=== PATIENT | female | born 1970 | race Two or more races ===

== ENCOUNTER 2017-01-30 19:14 | Inpatient (IN) | payer SELFPAY ==
[~2017-01-30] VITALS: Ht 134.6 cm; Wt 64.4 kg
[2017-01-30 19:45] LABS: BASO % 1 % (0-3); EOS % 5 % (0-3); HEMATOCRIT 32.3 % (36.0-47.0); LYMPH # 1.6 x10^3/uL (1.0-4.8); LYMPH % 17 % (24-48); MEAN CORPUSCULAR HEMOGLOBIN 22 pg (25-35); MEAN CORPUSCULAR HGB CONC 31 g/dL (31-37); MEAN CORPUSCULAR VOLUME 71 fL (79-100); MONO % 9 % (0-9); NEUT % 68 % (31-73); PLATELET COUNT 360 x10^3/uL (140-400); RED BLOOD COUNT 4.57 x10^6/uL (3.50-5.40); RED CELL DISTRIBUTION WIDTH 18.7 % (11.5-14.5)
[2017-01-30 19:54] LABS: CREATININE 0.7 mg/dL (0.6-1.0); GFR 90.5; POTASSIUM 3.6 mmol/L (3.5-5.1)
[2017-01-30 20:00] LABS: ALBUMIN 2.7 g/dL (3.4-5.0); ALBUMIN/GLOBULIN RATIO 0.6 (1.0-1.7); TOTAL BILIRUBIN 0.2 mg/dL (0.2-1.0); TOTAL PROTEIN 7.4 g/dL (6.4-8.2)
[2017-01-30] MEDS ORDERED: IPRATRPIUM/ALBUTEROL 0.5/2.5MG 3 ML NEBU. NEB ONE (20:00)
[2017-01-30] MEDS ORDERED: IV NORMAL SALINE 1000ML BAG 1,000 ML IV ONE (20:00)
[2017-01-30] MEDS ORDERED: AZITHRMYCN 500MG IVPB FOR OMNI 250 ML IV ONE (20:00)
[2017-01-30 20:04] LABS: BILIRUBIN,URINE NEGATIVE (NEG); GLUCOSE,URINE NEGATIVE (NEG); NITRITE,URINE NEGATIVE (NEG); PH,URINE 6.5; PROTEIN,URINE NEGATIVE (NEG-TRACE); UROBILINOGEN,URINE 0.2 mg/dL (0.2 mg/dL)
[2017-01-30 20:16] LABS: HYPOCHROMIA SLIGHT; OVALOCYTES OCC; PLT ESTIMATE INCREASED (ADEQUATE); POLYCHROMASIA SLIGHT; SCHISTOCYTES OCC
[2017-01-30 20:28] LABS: BACTERIA,URINE FEW /HPF (0-FEW); RBC,URINE 0 /HPF (0-2)
[2017-01-30 20:29] LABS: SQUAMOUS EPITHELIAL CELL,UR OCC /LPF
[2017-01-30 21:19] LABS: OBC FLU VALID
[2017-01-30 21:50] VITALS: BP 104/66
[2017-01-30] MEDS ORDERED: ONDANSETRON PF 4 MG/2 ML VIAL. IV PRN (22:15)
[2017-01-30] MEDS ORDERED: IV NORMAL SALINE 1000ML BAG 1,000 ML IV SCH (22:15)
[2017-01-30] MEDS ORDERED: MORPHINE SULFATE 4 MG/ML DISP.SYRIN. IV PRN (22:30)
[2017-01-30] MEDS: ONDANSETRON PF 4 MG/2 ML VIAL. IV PRN (22:47)
[2017-01-30] MEDS: ACETAMINOPHEN 325 MG TABLET. PO PRN (22:47)
[2017-01-30] MEDS: IV NORMAL SALINE 1000ML BAG 1,000 ML IV SCH (22:47)
[2017-01-30 23:00] VITALS: BP 104/66
--- NOTE | 2017-01-31 01:15 | ED.ADGEN ---
Past Medical History Past Medical History: Bronchitis, Kidney Stone, Migraines, Pneumonia Past Surgical History: Cholecystectomy, Tubal ligation, Other Additional Past Surgical Histo: kidney stone removal 2016; L hand Alcohol Use: None Drug Use: None Adult General Chief Complaint Chief Complaint: SHORTNESS OF BREATH HPI HPI Patient is a 46 year old woman, history of bronchitis, pneumonia, who was hospitalized for 8 days for months ago for episode of pneumonia, who presents the emergency department with a complaint of cough, fever, and shortness of breath with body aches. Patient states that his began yesterday. She states cough is primarily nonproductive, denies any sick contacts or exposures, did recently travel from [place] to visit her sister in [place]. Patient last used ibuprofen this morning. Patient noted to be hypoxic with oxygen saturation 85% room air upon arrival to the emergency department, is also. Afebrile in the emergency department, complains of subjective fevers and chills over the past 2 days. Denies any nausea or vomiting, any weakness, numbness, tingling. Has not received her flu vaccination this year. Patient states that she quit smoking 4 months ago, denies any other medical problems or medications regular basis. Patient placed on 2 L nasal cannula, oxygen saturation improved to 97%, respiratory rate to 20 from mid 30s, states she is feeling much better. Blood pressures are 100s over 70s. Review of Systems Review of Systems Constitutional: Subjective fevers and chills. Eyes: Denies change in visual acuity. [] HENT: Denies nasal congestion or sore throat. [] Respiratory: Cough is nonproductive, with shortness of breath. Cardiovascular: Chest pain with cough. No edema. GI: Denies abdominal pain, nausea, vomiting, bloody stools or diarrhea. [] : Denies dysuria. [] Musculoskeletal: Denies back pain or joint pain. [] Integument: Denies rash. [] Neurologic: Denies headache, focal weakness or sensory changes. [] Endocrine: Denies polyuria or polydipsia. [] Lymphatic: Denies swollen glands. [] Psychiatric: Denies depression or anxiety. [] Allergies Allergies Allergies Coded Allergies Type Severity Reaction Last Updated Verified No Known Drug Allergies 01/30/17 No Physical Exam Physical Exam Constitutional: Well developed, well nourished, no acute distress, non-toxic appearance. [] HENT: Normocephalic, atraumatic, bilateral external ears normal, oropharynx moist, no oral exudates, nose normal. [] Eyes: PERRLA, EOMI, conjunctiva normal, no discharge. [] Neck: Normal range of motion, no tenderness, supple, no stridor. [] Cardiovascular:Heart rate regular rhythm, no murmur, S1, S2, rubs or gallops. [] Lungs & Thorax: Patient coughs with deep inspiration, limiting examination, no discrete rhonchi or rales identified, no chest wall crepitus. Patient with tenderness throughout the back in the paraspinal muscles.[] Abdomen: Bowel sounds normal, soft, no tenderness, no masses, no pulsatile masses. [] Skin: Warm, dry, no erythema, no rash. [] Back: No midline tenderness, no cyanosis or deformities, patient with tenderness to palpation of the trapezius density paraspinal muscles of the back , no CVA tenderness. [] Extremities: No tenderness, no cyanosis, no clubbing, ROM intact, no edema. [] Neurologic: Alert and oriented X 3, normal motor function, normal sensory function, no focal deficits noted. [] Psychologic: Affect normal, judgement normal, mood normal. []No tenderness Current Patient Data Vital Signs Vital Signs Date Time Temp Pulse Resp B/P (MAP) Pulse Ox O2 Delivery O2 Flow Rate FiO2 01/30/17 19:49 96 37 109/80 (90) 98 Nasal Cannula 3.0 01/30/17 19:24 98.3 98.3 Lab Values Laboratory Tests Test 01/30/17 19:30 White Blood Count 9.0 x10^3/uL (4.0-11.0) Red Blood Count 4.57 x10^6/uL (3.50-5.40) Hemoglobin 10.0 g/dL (12.0-15.5) L Hematocrit 32.3 % (36.0-47.0) L Mean Corpuscular Volume 71 fL (79-100) L Mean Corpuscular Hemoglobin 22 pg (25-35) L Mean Corpuscular Hemoglobin Concent 31 g/dL (31-37) Red Cell Distribution Width 18.7 % (11.5-14.5) H Platelet Count 360 x10^3/uL (140-400) Neutrophils (%) (Auto) 68 % (31-73) Lymphocytes (%) (Auto) 17 % (24-48) L Monocytes (%) (Auto) 9 % (0-9) Eosinophils (%) (Auto) 5 % (0-3) H Basophils (%) (Auto) 1 % (0-3) Neutrophils # (Auto) 6.1 x10^3uL (1.8-7.7) Lymphocytes # (Auto) 1.6 x10^3/uL (1.0-4.8) Monocytes # (Auto) 0.8 x10^3/uL (0.0-1.1) Eosinophils # (Auto) 0.5 x10^3/uL (0.0-0.7) Basophils # (Auto) 0.0 x10^3/uL (0.0-0.2) Platelet Estimate Increased (ADEQUATE) Large Platelets Occ Polychromasia Slight Hypochromasia Slight Ovalocytes Occ Schistocytes Occ Sodium Level 139 mmol/L (136-145) Potassium Level 3.6 mmol/L (3.5-5.1) Chloride Level 107 mmol/L (98-107) Carbon Dioxide Level 25 mmol/L (21-32) Anion Gap 7 (6-14) Blood Urea Nitrogen 9 mg/dL (7-20) Creatinine 0.7 mg/dL (0.6-1.0) Estimated GFR (Cockcroft-Gault) 90.5 BUN/Creatinine Ratio 13 (6-20) Glucose Level 107 mg/dL (70-99) H Lactic Acid Level 1.8 mmol/L (0.4-2.0) Calcium Level 8.0 mg/dL (8.5-10.1) L Total Bilirubin 0.2 mg/dL (0.2-1.0) Aspartate Amino Transferase (AST) 27 U/L (15-37) Alanine Aminotransferase (ALT) 24 U/L (14-59) Alkaline Phosphatase 69 U/L (46-116) Troponin I Quantitative < 0.017 ng/mL (0.000-0.055) JL-Wpp-V-Type Natriuretic Peptide 21 pg/mL (0-124) Total Protein 7.4 g/dL (6.4-8.2) Albumin 2.7 g/dL (3.4-5.0) L Albumin/Globulin Ratio 0.6 (1.0-1.7) L Laboratory Tests 01/30/17 19:30 Laboratory Tests 01/30/17 19:30 EKG EKG ECG: Rhythm strip: Heart rate 105 bpm, sinus tachycardia, no ectopy.[] Radiology/Procedures Radiology/Procedures Chest x-ray: One view: Patient with bilateral infiltrates, concerning for pneumonia, no obvious effusions, no pneumothorax, no bony or soft tissue abnormalities, patient with normal cardiopulmonary silhouette. As interpreted by me.[] Course & Med Decision Making Course & Med Decision Making Pertinent Labs and Imaging studies reviewed. (See chart for details) Patient's history, examination, and imaging is consistent with pneumonia. Oxygen saturation stable on 2 L nasal cannula, patient resting comfortably, with resolution of her tachypnea. I did discuss signs of bedside patient she is agreeable for admission to the hospital for continued supportive care and initiation of antibiotics. Patient is criteria for community-acquired antibiotics coverage, which was initiated in the ED without issue. Influenza swab was negative. Patient also received a DuoNeb treatment. Findings as above discussed with Dr. Fuentes internal medicine, patient accepted to her service as a full admission to the medical telemetry floor, with consultation placed for pulmonary critical care, with supportive measures and bridge orders entered per discussion. Dragon Disclaimer Dragon Disclaimer This electronic medical record was generated, in whole or in part, using a voice recognition dictation system. Departure Impression: Primary Impression: CAP (community acquired pneumonia) Additional Impression: Respiratory failure with hypoxia Disposition: ADMITTED INPATIENT Admitting Physician: Cedrick Fuentes Condition: IMPROVED Problem Qualifiers BILLY DALTON DO Jan 31, 2017 01:15
[2017-01-31 03:00] VITALS: BP 106/51
[2017-01-31] MEDS: ACETAMINOPHEN 325 MG TABLET. PO PRN ×3 (05:11→19:28)
[2017-01-31 05:41] LABS: BASO % 0 % (0-3); EOS % 6 % (0-3); HEMATOCRIT 28.2 % (36.0-47.0); HEMOGLOBIN 8.8 g/dL (12.0-15.5); LYMPH # 1.6 x10^3/uL (1.0-4.8); LYMPH % 25 % (24-48); MEAN CORPUSCULAR HEMOGLOBIN 22 pg (25-35); MEAN CORPUSCULAR HGB CONC 31 g/dL (31-37); MEAN CORPUSCULAR VOLUME 71 fL (79-100); MONO % 12 % (0-9); NEUT % 57 % (31-73); PLATELET COUNT 303 x10^3/uL (140-400); RED BLOOD COUNT 3.99 x10^6/uL (3.50-5.40); RED CELL DISTRIBUTION WIDTH 18.8 % (11.5-14.5); WHITE BLOOD COUNT 6.3 x10^3/uL (4.0-11.0)
[2017-01-31 06:15] LABS: CALCIUM 7.5 mg/dL (8.5-10.1); CREATININE 0.5 mg/dL (0.6-1.0); GFR 133.4; POTASSIUM 3.7 mmol/L (3.5-5.1)
--- NOTE | 2017-01-31 06:17 | EKG ---
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
[2017-01-31 07:00] VITALS: BP 98/63
[2017-01-31] MEDS: IPRATRPIUM/ALBUTEROL 0.5/2.5MG 3 ML NEBU. NEB SCH ×4 (08:26→20:43)
--- NOTE | 2017-01-31 08:26 | RAD ---
PORTABLE CHEST 1V Clinical Indication: SOB/hypoxia Comparison: None. Findings: Low lung volume. Bibasilar heterogenous air space opacities. Pulmonary vascular indistinctness. Possible small left pleural effusion. No pneumothorax. The cardiomediastinal silhouette and great vessels are normal. No acute osseous abnormality. IMPRESSION: 1. Bibasilar heterogenous air space opacities. Findings could relate to atelectasis, although pulmonary edema or an infectious process cannot be excluded. Recommend continued radiographic follow-up to resolution. 2. Possible small left pleural effusion.
[2017-01-31] MEDS ORDERED: MORPHINE SULFATE 2 MG/ML DISP.SYRIN. IV PRN (10:45)
[2017-01-31] MEDS ORDERED: ONDANSETRON PF 4 MG/2 ML VIAL. IV PRN (10:45)
[2017-01-31] MEDS ORDERED: hydrALAZINE 20 MG/ML VIAL. IVP PRN (10:45)
[2017-01-31] MEDS ORDERED: ALBUTEROL SULFATE 2.5 MG/3 ML NEBU. NEB PRN (10:45)
[2017-01-31 11:00] VITALS: BP 101/60
[2017-01-31] MEDS: traMADol 50 MG TABLET PO PRN ×2 (11:44→17:44)
[2017-01-31] MEDS: guaiFENesin/CODEINE 100mg/10mg 5 ML LIQUID PO PRN ×2 (11:44→21:53)
[2017-01-31] MEDS: IV NORMAL SALINE 1000ML BAG 1,000 ML IV SCH (11:45)
--- NOTE | 2017-01-31 12:16 | CONS ---
DATE OF CONSULTATION: 01/31/2017 PULMONARY CONSULTATION DATE OF SERVICE: 01/31/2017 ATTENDING PHYSICIAN: Dr. Fuentes. REASON FOR CONSULTATION: Pneumonia. HISTORY OF PRESENT ILLNESS: The patient is a 46-year-old who used to smoke for 20 years, quit 4 months ago. She has a history of prior pneumonia. She was brought into the hospital with complaint of shortness of breath and a cough which has been dry. She had some subjective fever at home. The patient was also wheezing as well. The patient had recent travel from [place] to visit her sister in [place]. The patient was also hypoxic with saturation of 85% on room air. Her chest x-ray was reviewed and it shows bibasilar infiltrates consistent with pneumonia. She was started on antibiotic azithromycin and Rocephin, and I have been asked to see her for further evaluation. PAST MEDICAL HISTORY: Possible chronic obstructive pulmonary disease, history of bronchitis, history of kidney stones, migraines, and history of pneumonia. PAST SURGICAL HISTORY: Cholecystectomy, tubal ligation, kidney stone removal. ALLERGIES: None. CURRENT MEDICATIONS: Reviewed as listed in the MRAD. REVIEW OF SYSTEMS: As discussed in my history of present illness. SOCIAL HISTORY: Smoked for 20 years before quitting 4 months ago. PHYSICAL EXAMINATION: GENERAL: She is awake, following commands. VITAL SIGNS: Afebrile, blood pressure is stable, pulse oximetry 99% on 2 liters. NECK: Supple. LUNGS: With bilateral expiratory wheezes, faint. CARDIOVASCULAR: Regular rate and rhythm. ABDOMEN: Soft, obese. EXTREMITIES: With no pitting edema. LABORATORY DATA: Reviewed. White cell count 9.0, platelets 360. IMPRESSION: 1. Acute hypoxic respiratory failure secondary to community-acquired basal pneumonia. 2. Suspected underlying chronic obstructive pulmonary disease. RECOMMENDATIONS: 1. Continue with present antibiotics. 2. Continue oxygen. 3. Bronchodilators. 4. Add Pulmicort. 5. We will follow along with you. Discussed with RN. SAMMY LOWERY MD DR: ZAC/kris JOB#: [id number] / [id number]
[2017-01-31] MEDS: ONDANSETRON PF 4 MG/2 ML VIAL. IV PRN ×2 (13:26→21:53)
[2017-01-31] MEDS ORDERED: FLU VACC QS2017-18 (36MOS+)/PF 0.5 ML SYRINGE. VAX IM ONE (13:30)
--- NOTE | 2017-01-31 13:48 | PDOC1 ---
History and Physical Date of Admission Date of Admission 01/30/17 Identification/Chief Complaint Chief Complaint cough, sob Problems: Source Source: Chart review, Patient History of Present Illness History of Present Illness HPI Patient is a 46 year old woman, history of bronchitis, pneumonia 4 months ago, previous smoking quit 4months ago, came to ER for cough and sob x1week. Pt denies runny nose, sore throat, + subjective fever, sick contract or recent travel, altho as per ERP, pt did recently travel from [place] to visit her sister in [place]. pt has nonproductive cough, with pleuritic chest pain and back pain, sob, as per ERP, Patient noted to be hypoxic with oxygen saturation 85% room air upon arrival to the emergency department, is also. + nausea, bl leg ache Denies vomiting, any weakness, numbness, tingling. Has not received her flu vaccination this year. Patient placed on 2 L nasal cannula, oxygen saturation improved to 97%, respiratory rate to 20 from mid 30s , states she is feeling much better. Blood pressures are 100s over 70s. flu neg. Past Medical History Past Medical History bronchitis Past Surgical History Past Surgical History: Cholecystectomy, Tubal Ligation Family History Family History: Hypertension Social History Smoke: Quit ALCOHOL: social Drugs: None Current Problem List Problem List Problems Medical Problems: (1) Respiratory failure with hypoxia Status: Acute Current Medications Current Medications Current Medications Medications (Trade) Dose Ordered Sig/Delmy Start Time Stop Time Status Last Admin Dose Admin Acetaminophen (Tylenol) 650 mg PRN Q6HRS PRN 01/31/17 10:45 01/31/17 13:23 650 MG Albuterol Sulfate (Ventolin Neb Soln) 2.5 mg PRN Q4HRS PRN 01/31/17 10:45 Albuterol/ Ipratropium (Duoneb) 3 ml RTQID 01/31/17 08:00 02/01/17 07:59 01/31/17 11:43 3 ML Azithromycin 250 ml @ 250 mls/hr 1X ONCE 01/30/17 20:00 01/30/17 20:59 DC 01/30/17 20:00 250 MLS/HR Azithromycin 500 mg/Sodium Chloride 250 ml @ 250 mls/hr Q24H 01/31/17 21:00 02/02/17 20:59 Ceftriaxone Sodium 1 gm/ Sodium Chloride 100 ml @ 200 mls/hr Q24H 01/31/17 21:00 Ceftriaxone Sodium 50 ml @ 100 mls/hr 1X ONCE 01/30/17 20:00 01/30/17 20:29 DC 01/30/17 20:00 100 MLS/HR Docusate Sodium (Colace) 100 mg PRN DAILY PRN 01/31/17 10:45 Guaifenesin/ Codeine Phosphate (Robitussin Ac) 5 ml PRN Q6HRS PRN 01/31/17 10:45 01/31/17 11:44 5 ML Hydralazine HCl (Apresoline) 10 mg PRN Q4HRS PRN 01/31/17 10:45 Influenza Virus Vaccine Quadrival (Fluarix Quad [id number] Syringe) 0.5 ml ONCE ONCE 01/31/17 13:30 01/31/17 13:31 DC Morphine Sulfate 2 mg PRN Q2HR PRN 01/31/17 10:45 Ondansetron HCl (Zofran) 4 mg PRN Q6HRS PRN 01/31/17 10:45 UNV Sodium Chloride 1,000 ml @ 125 mls/hr Q8H 01/30/17 22:15 01/30/17 23:18 DC Tramadol HCl (Ultram) 50 mg PRN Q6HRS PRN 01/31/17 10:45 01/31/17 11:44 50 MG Allergies Allergies Allergies Coded Allergies Type Severity Reaction Last Updated Verified No Known Drug Allergies 01/30/17 No ROS Review of System CONSTITUTIONAL: No fever or chills EYES: No recent changes SKIN: No rash or itching CARDIOVASCULAR: No chest pain, syncope, palpitations, or edema RESPIRATORY: No SOB or cough GASTROINTESTINAL: No nausea, vomiting or abdominal pain NEUROLOGICAL: No headaches or weakness ENDOCRINE: No cold or heat intolerance GENITOURINARY: No urgency or frequency of urination MUSCULOSKELETAL: No back pain or joint pain LYMPHATICS: No enlarged lymph nodes PSYCHIATRIC: No anxiety or depression Physical Exam Physical Exam GEN.: No apparent distress. Alert and oriented. HEENT: Head is normocephalic, atraumatic NECK: Supple. LUNGS: bl basilar mild crackles HEART: RRR, S1, S2 present. Peripheral pulses intact ABDOMEN: Soft, nontender. Positive bowel sounds. EXTREMITIES: Without any cyanosis. NEUROLOGIC: Normal speech, normal tone PSYCHIATRIC: Normal affect, normal mood. SKIN: No ulcerations Vitals Vitals Vital Signs Date Time Temp Pulse Resp B/P (MAP) Pulse Ox O2 Delivery O2 Flow Rate FiO2 01/31/17 11:44 97 Room Air 01/31/17 11:44 28 01/31/17 11:00 97.5 83 101/60 (74) 2.0 97.5 Labs Labs Laboratory Tests Test 01/30/17 19:30 01/30/17 19:55 01/30/17 20:48 01/31/17 04:45 White Blood Count 9.0 x10^3/uL (4.0-11.0) 6.3 x10^3/uL (4.0-11.0) Red Blood Count 4.57 x10^6/uL (3.50-5.40) 3.99 x10^6/uL (3.50-5.40) Hemoglobin 10.0 g/dL (12.0-15.5) 8.8 g/dL (12.0-15.5) Hematocrit 32.3 % (36.0-47.0) 28.2 % (36.0-47.0) Mean Corpuscular Volume 71 fL (79-100) 71 fL (79-100) Mean Corpuscular Hemoglobin 22 pg (25-35) 22 pg (25-35) Mean Corpuscular Hemoglobin Concent 31 g/dL (31-37) 31 g/dL (31-37) Red Cell Distribution Width 18.7 % (11.5-14.5) 18.8 % (11.5-14.5) Platelet Count 360 x10^3/uL (140-400) 303 x10^3/uL (140-400) Neutrophils (%) (Auto) 68 % (31-73) 57 % (31-73) Lymphocytes (%) (Auto) 17 % (24-48) 25 % (24-48) Monocytes (%) (Auto) 9 % (0-9) 12 % (0-9) Eosinophils (%) (Auto) 5 % (0-3) 6 % (0-3) Basophils (%) (Auto) 1 % (0-3) 0 % (0-3) Neutrophils # (Auto) 6.1 x10^3uL (1.8-7.7) 3.6 x10^3uL (1.8-7.7) Lymphocytes # (Auto) 1.6 x10^3/uL (1.0-4.8) 1.6 x10^3/uL (1.0-4.8) Monocytes # (Auto) 0.8 x10^3/uL (0.0-1.1) 0.7 x10^3/uL (0.0-1.1) Eosinophils # (Auto) 0.5 x10^3/uL (0.0-0.7) 0.4 x10^3/uL (0.0-0.7) Basophils # (Auto) 0.0 x10^3/uL (0.0-0.2) 0.0 x10^3/uL (0.0-0.2) Platelet Estimate Increased (ADEQUATE) Large Platelets Occ Polychromasia Slight Hypochromasia Slight Ovalocytes Occ Schistocytes Occ Sodium Level 139 mmol/L (136-145) 143 mmol/L (136-145) Potassium Level 3.6 mmol/L (3.5-5.1) 3.7 mmol/L (3.5-5.1) Chloride Level 107 mmol/L (98-107) 112 mmol/L (98-107) Carbon Dioxide Level 25 mmol/L (21-32) 24 mmol/L (21-32) Anion Gap 7 (6-14) 7 (6-14) Blood Urea Nitrogen 9 mg/dL (7-20) 8 mg/dL (7-20) Creatinine 0.7 mg/dL (0.6-1.0) 0.5 mg/dL (0.6-1.0) Estimated GFR (Cockcroft-Gault) 90.5 133.4 BUN/Creatinine Ratio 13 (6-20) Glucose Level 107 mg/dL (70-99) 93 mg/dL (70-99) Lactic Acid Level 1.8 mmol/L (0.4-2.0) Calcium Level 8.0 mg/dL (8.5-10.1) 7.5 mg/dL (8.5-10.1) Total Bilirubin 0.2 mg/dL (0.2-1.0) Aspartate Amino Transf (AST/SGOT) 27 U/L (15-37) Alanine Aminotransferase (ALT/SGPT) 24 U/L (14-59) Alkaline Phosphatase 69 U/L (46-116) Troponin I Quantitative < 0.017 ng/mL (0.000-0.055) KO-Rsl-I-Type Natriuretic Peptide 21 pg/mL (0-124) Total Protein 7.4 g/dL (6.4-8.2) Albumin 2.7 g/dL (3.4-5.0) Albumin/Globulin Ratio 0.6 (1.0-1.7) Urine Color Yellow Urine Clarity Clear Urine pH 6.5 Urine Specific [place] >=1.030 Urine Protein Negative mg/dL (NEG-TRACE) Urine Glucose (UA) Negative mg/dL (NEG) Urine Ketones (Stick) Negative mg/dL (NEG) Urine Blood Negative (NEG) Urine Nitrite Negative (NEG) Urine Bilirubin Negative (NEG) Urine Urobilinogen Dipstick 0.2 mg/dL (0.2 mg/dL) Urine Leukocyte Esterase Negative (NEG) Urine RBC 0 /HPF (0-2) Urine WBC 1-4 /HPF (0-4) Urine Squamous Epithelial Cells Occ /LPF Urine Amorphous Sediment Present /HPF Urine Bacteria Few /HPF (0-FEW) Urine Hyaline Casts Few /HPF Urine Mucus Mod /LPF Influenza Type A Antigen Negative (NEGATIVE) Influenza Type B Antigen Negative (NEGATIVE) Laboratory Tests Test 01/30/17 19:30 01/30/17 19:55 01/30/17 20:48 01/31/17 04:45 White Blood Count 9.0 x10^3/uL (4.0-11.0) 6.3 x10^3/uL (4.0-11.0) Red Blood Count 4.57 x10^6/uL (3.50-5.40) 3.99 x10^6/uL (3.50-5.40) Hemoglobin 10.0 g/dL (12.0-15.5) 8.8 g/dL (12.0-15.5) Hematocrit 32.3 % (36.0-47.0) 28.2 % (36.0-47.0) Mean Corpuscular Volume 71 fL (79-100) 71 fL (79-100) Mean Corpuscular Hemoglobin 22 pg (25-35) 22 pg (25-35) Mean Corpuscular Hemoglobin Concent 31 g/dL (31-37) 31 g/dL (31-37) Red Cell Distribution Width 18.7 % (11.5-14.5) 18.8 % (11.5-14.5) Platelet Count 360 x10^3/uL (140-400) 303 x10^3/uL (140-400) Neutrophils (%) (Auto) 68 % (31-73) 57 % (31-73) Lymphocytes (%) (Auto) 17 % (24-48) 25 % (24-48) Monocytes (%) (Auto) 9 % (0-9) 12 % (0-9) Eosinophils (%) (Auto) 5 % (0-3) 6 % (0-3) Basophils (%) (Auto) 1 % (0-3) 0 % (0-3) Neutrophils # (Auto) 6.1 x10^3uL (1.8-7.7) 3.6 x10^3uL (1.8-7.7) Lymphocytes # (Auto) 1.6 x10^3/uL (1.0-4.8) 1.6 x10^3/uL (1.0-4.8) Monocytes # (Auto) 0.8 x10^3/uL (0.0-1.1) 0.7 x10^3/uL (0.0-1.1) Eosinophils # (Auto) 0.5 x10^3/uL (0.0-0.7) 0.4 x10^3/uL (0.0-0.7) Basophils # (Auto) 0.0 x10^3/uL (0.0-0.2) 0.0 x10^3/uL (0.0-0.2) Platelet Estimate Increased (ADEQUATE) Large Platelets Occ Polychromasia Slight Hypochromasia Slight Ovalocytes Occ Schistocytes Occ Sodium Level 139 mmol/L (136-145) 143 mmol/L (136-145) Potassium Level 3.6 mmol/L (3.5-5.1) 3.7 mmol/L (3.5-5.1) Chloride Level 107 mmol/L (98-107) 112 mmol/L (98-107) Carbon Dioxide Level 25 mmol/L (21-32) 24 mmol/L (21-32) Anion Gap 7 (6-14) 7 (6-14) Blood Urea Nitrogen 9 mg/dL (7-20) 8 mg/dL (7-20) Creatinine 0.7 mg/dL (0.6-1.0) 0.5 mg/dL (0.6-1.0) Estimated GFR (Cockcroft-Gault) 90.5 133.4 BUN/Creatinine Ratio 13 (6-20) Glucose Level 107 mg/dL (70-99) 93 mg/dL (70-99) Lactic Acid Level 1.8 mmol/L (0.4-2.0) Calcium Level 8.0 mg/dL (8.5-10.1) 7.5 mg/dL (8.5-10.1) Total Bilirubin 0.2 mg/dL (0.2-1.0) Aspartate Amino Transf (AST/SGOT) 27 U/L (15-37) Alanine Aminotransferase (ALT/SGPT) 24 U/L (14-59) Alkaline Phosphatase 69 U/L (46-116) Troponin I Quantitative < 0.017 ng/mL (0.000-0.055) TK-Uxp-B-Type Natriuretic Peptide 21 pg/mL (0-124) Total Protein 7.4 g/dL (6.4-8.2) Albumin 2.7 g/dL (3.4-5.0) Albumin/Globulin Ratio 0.6 (1.0-1.7) Urine Color Yellow Urine Clarity Clear Urine pH 6.5 Urine Specific [place] >=1.030 Urine Protein Negative mg/dL (NEG-TRACE) Urine Glucose (UA) Negative mg/dL (NEG) Urine Ketones (Stick) Negative mg/dL (NEG) Urine Blood Negative (NEG) Urine Nitrite Negative (NEG) Urine Bilirubin Negative (NEG) Urine Urobilinogen Dipstick 0.2 mg/dL (0.2 mg/dL) Urine Leukocyte Esterase Negative (NEG) Urine RBC 0 /HPF (0-2) Urine WBC 1-4 /HPF (0-4) Urine Squamous Epithelial Cells Occ /LPF Urine Amorphous Sediment Present /HPF Urine Bacteria Few /HPF (0-FEW) Urine Hyaline Casts Few /HPF Urine Mucus Mod /LPF Influenza Type A Antigen Negative (NEGATIVE) Influenza Type B Antigen Negative (NEGATIVE) VTE Prophylaxis Ordered VTE Prophylaxis Devices: Yes VTE Pharmacological Prophylaxi: Yes Assessment/Plan Assessment/Plan acute resp failure with CAP h/o pna and bronchitis previous smoker, possible copd baseline SIRS, no sepsis normacytic anemia, likely chronic plan: fu with pulm on mona and ceftriaxone cough meds duoneb, albuterol prn check legi and strep urine Ag dvt ppx anemia work up flu neg NC as needed admit 2nights SARAH ARAUJO MD Jan 31, 2017 13:48
[2017-01-31 15:00] VITALS: BP 112/71
[2017-01-31] MEDS: ENOXAPARIN 40 MG/0.4 ML SYRINGE. SQ SCH (17:44)
[2017-01-31 19:00] VITALS: BP 116/78
[2017-01-31] MEDS: BUDESONIDE 0.5 MG/2 ML NEBU. NEB SCH (20:43)
[2017-01-31 23:00] VITALS: BP 126/76
[2017-01-31] MEDS: AZITHROMYCIN 500 MG in IV NORMAL SALINE 250ML 250 ML IV SCH (23:12)
[2017-01-31] MEDS ORDERED: TEMAZEPAM 7.5 MG CAPSULE PO PRN (23:45)
[2017-02-01 03:00] VITALS: BP 118/64
[2017-02-01] MEDS: IV NORMAL SALINE 1000ML BAG 1,000 ML IV SCH ×2 (03:43→19:05)
[2017-02-01 05:32] LABS: BASO % 1 % (0-3); EOS % 5 % (0-3); HEMATOCRIT 28.7 % (36.0-47.0); HEMOGLOBIN 8.8 g/dL (12.0-15.5); LYMPH # 1.8 x10^3/uL (1.0-4.8); LYMPH % 25 % (24-48); MEAN CORPUSCULAR HEMOGLOBIN 22 pg (25-35); MEAN CORPUSCULAR HGB CONC 31 g/dL (31-37); MEAN CORPUSCULAR VOLUME 70 fL (79-100); MONO % 9 % (0-9); NEUT % 60 % (31-73); PLATELET COUNT 298 x10^3/uL (140-400); RED BLOOD COUNT 4.11 x10^6/uL (3.50-5.40); RED CELL DISTRIBUTION WIDTH 18.7 % (11.5-14.5)
[2017-02-01 05:58] LABS: CALCIUM 8.1 mg/dL (8.5-10.1); CREATININE 0.6 mg/dL (0.6-1.0); GFR 108.1
[2017-02-01 07:00] VITALS: BP 97/62
[2017-02-01] MEDS: BUDESONIDE 0.5 MG/2 ML NEBU. NEB SCH ×2 (07:11→20:06)
[2017-02-01] MEDS: IPRATRPIUM/ALBUTEROL 0.5/2.5MG 3 ML NEBU. NEB SCH (07:11)
[2017-02-01] MEDS: traMADol 50 MG TABLET PO PRN ×2 (10:13→17:14)
[2017-02-01] MEDS: ONDANSETRON PF 4 MG/2 ML VIAL. IV PRN (10:28)
[2017-02-01] MEDS: ACETAMINOPHEN 325 MG TABLET. PO PRN ×2 (10:32→17:14)
[2017-02-01 11:00] VITALS: BP 107/69
[2017-02-01] MEDS: PROMETHAZINE 12.5 MG TABLET. PO PRN (13:48)
[2017-02-01] MEDS: IRON SUCROSE COMPLEX 200 MG in IV NORMAL SALINE 100ML 100 ML IV SCH (14:31)
--- NOTE | 2017-02-01 14:43 | PDOC ---
PROGRESS NOTES Chief Complaint Chief Complaint acute resp failure with CAP h/o pna and bronchitis previous smoker, possible copd baseline SIRS, no sepsis normacytic anemia, likely chronic, iron deficiency plan: fu with pulm on mona and ceftriaxone cough meds duoneb, albuterol prn check legi and strep urine Ag dvt ppx add venofer x5d add more N/V meds flu neg NC as needed repeat CXR today History of Present Illness History of Present Illness ROS: no fever, chills, sob or chest pain cont cough, no sputum severe n/, [place], body ache low iron Vitals Vitals Vital Signs Date Time Temp Pulse Resp B/P (MAP) Pulse Ox O2 Delivery O2 Flow Rate FiO2 02/01/17 11:13 22 Room Air 02/01/17 11:00 97.8 92 107/69 (82) 91 97.8 01/31/17 20:00 2.0 Physical Exam General: Alert, Oriented X3, Cooperative Heart: Regular rate, Normal S1, Normal S2 Lungs: Other (bl coarse bs, some rhonchis at base) Abdomen: Normal bowel sounds, Soft Extremities: No clubbing, No cyanosis Skin: No rashes Labs LABS Laboratory Tests Test 02/01/17 05:15 White Blood Count 7.0 x10^3/uL (4.0-11.0) Red Blood Count 4.11 x10^6/uL (3.50-5.40) Hemoglobin 8.8 g/dL (12.0-15.5) Hematocrit 28.7 % (36.0-47.0) Mean Corpuscular Volume 70 fL (79-100) Mean Corpuscular Hemoglobin 22 pg (25-35) Mean Corpuscular Hemoglobin Concent 31 g/dL (31-37) Red Cell Distribution Width 18.7 % (11.5-14.5) Platelet Count 298 x10^3/uL (140-400) Neutrophils (%) (Auto) 60 % (31-73) Lymphocytes (%) (Auto) 25 % (24-48) Monocytes (%) (Auto) 9 % (0-9) Eosinophils (%) (Auto) 5 % (0-3) Basophils (%) (Auto) 1 % (0-3) Neutrophils # (Auto) 4.2 x10^3uL (1.8-7.7) Lymphocytes # (Auto) 1.8 x10^3/uL (1.0-4.8) Monocytes # (Auto) 0.7 x10^3/uL (0.0-1.1) Eosinophils # (Auto) 0.4 x10^3/uL (0.0-0.7) Basophils # (Auto) 0.0 x10^3/uL (0.0-0.2) Sodium Level 138 mmol/L (136-145) Potassium Level 4.0 mmol/L (3.5-5.1) Chloride Level 106 mmol/L (98-107) Carbon Dioxide Level 25 mmol/L (21-32) Anion Gap 7 (6-14) Blood Urea Nitrogen 6 mg/dL (7-20) Creatinine 0.6 mg/dL (0.6-1.0) Estimated GFR (Cockcroft-Gault) 108.1 Glucose Level 83 mg/dL (70-99) Calcium Level 8.1 mg/dL (8.5-10.1) Iron Level 16 ug/dL (50-170) Total Iron Binding Capacity 320 ug/dL (250-450) Iron Saturation 5 % (15-34) Ferritin 8 ng/mL (8-252) Assessment and Plan Assessmemt and Plan Problems Medical Problems: (1) Respiratory failure with hypoxia Status: Acute Problems: Comment Review of Relevant I have reviewed the following items caroline (where applicable) has been applied. Labs Laboratory Tests Test 01/30/17 19:30 01/30/17 19:55 01/30/17 20:48 01/31/17 04:45 White Blood Count 9.0 x10^3/uL (4.0-11.0) 6.3 x10^3/uL (4.0-11.0) Red Blood Count 4.57 x10^6/uL (3.50-5.40) 3.99 x10^6/uL (3.50-5.40) Hemoglobin 10.0 g/dL (12.0-15.5) 8.8 g/dL (12.0-15.5) Hematocrit 32.3 % (36.0-47.0) 28.2 % (36.0-47.0) Mean Corpuscular Volume 71 fL (79-100) 71 fL (79-100) Mean Corpuscular Hemoglobin 22 pg (25-35) 22 pg (25-35) Mean Corpuscular Hemoglobin Concent 31 g/dL (31-37) 31 g/dL (31-37) Red Cell Distribution Width 18.7 % (11.5-14.5) 18.8 % (11.5-14.5) Platelet Count 360 x10^3/uL (140-400) 303 x10^3/uL (140-400) Neutrophils (%) (Auto) 68 % (31-73) 57 % (31-73) Lymphocytes (%) (Auto) 17 % (24-48) 25 % (24-48) Monocytes (%) (Auto) 9 % (0-9) 12 % (0-9) Eosinophils (%) (Auto) 5 % (0-3) 6 % (0-3) Basophils (%) (Auto) 1 % (0-3) 0 % (0-3) Neutrophils # (Auto) 6.1 x10^3uL (1.8-7.7) 3.6 x10^3uL (1.8-7.7) Lymphocytes # (Auto) 1.6 x10^3/uL (1.0-4.8) 1.6 x10^3/uL (1.0-4.8) Monocytes # (Auto) 0.8 x10^3/uL (0.0-1.1) 0.7 x10^3/uL (0.0-1.1) Eosinophils # (Auto) 0.5 x10^3/uL (0.0-0.7) 0.4 x10^3/uL (0.0-0.7) Basophils # (Auto) 0.0 x10^3/uL (0.0-0.2) 0.0 x10^3/uL (0.0-0.2) Platelet Estimate Increased (ADEQUATE) Large Platelets Occ Polychromasia Slight Hypochromasia Slight Ovalocytes Occ Schistocytes Occ Sodium Level 139 mmol/L (136-145) 143 mmol/L (136-145) Potassium Level 3.6 mmol/L (3.5-5.1) 3.7 mmol/L (3.5-5.1) Chloride Level 107 mmol/L (98-107) 112 mmol/L (98-107) Carbon Dioxide Level 25 mmol/L (21-32) 24 mmol/L (21-32) Anion Gap 7 (6-14) 7 (6-14) Blood Urea Nitrogen 9 mg/dL (7-20) 8 mg/dL (7-20) Creatinine 0.7 mg/dL (0.6-1.0) 0.5 mg/dL (0.6-1.0) Estimated GFR (Cockcroft-Gault) 90.5 133.4 BUN/Creatinine Ratio 13 (6-20) Glucose Level 107 mg/dL (70-99) 93 mg/dL (70-99) Lactic Acid Level 1.8 mmol/L (0.4-2.0) Calcium Level 8.0 mg/dL (8.5-10.1) 7.5 mg/dL (8.5-10.1) Total Bilirubin 0.2 mg/dL (0.2-1.0) Aspartate Amino Transf (AST/SGOT) 27 U/L (15-37) Alanine Aminotransferase (ALT/SGPT) 24 U/L (14-59) Alkaline Phosphatase 69 U/L (46-116) Troponin I Quantitative < 0.017 ng/mL (0.000-0.055) [id number] Natriuretic Peptide 21 pg/mL (0-124) Total Protein 7.4 g/dL (6.4-8.2) Albumin 2.7 g/dL (3.4-5.0) Albumin/Globulin Ratio 0.6 (1.0-1.7) Urine Color Yellow Urine Clarity Clear Urine pH 6.5 Urine Specific [place] >=1.030 Urine Protein Negative mg/dL (NEG-TRACE) Urine Glucose (UA) Negative mg/dL (NEG) Urine Ketones (Stick) Negative mg/dL (NEG) Urine Blood Negative (NEG) Urine Nitrite Negative (NEG) Urine Bilirubin Negative (NEG) Urine Urobilinogen Dipstick 0.2 mg/dL (0.2 mg/dL) Urine Leukocyte Esterase Negative (NEG) Urine RBC 0 /HPF (0-2) Urine WBC 1-4 /HPF (0-4) Urine Squamous Epithelial Cells Occ /LPF Urine Amorphous Sediment Present /HPF Urine Bacteria Few /HPF (0-FEW) Urine Hyaline Casts Few /HPF Urine Mucus Mod /LPF Influenza Type A Antigen Negative (NEGATIVE) Influenza Type B Antigen Negative (NEGATIVE) Test 02/01/17 05:15 White Blood Count 7.0 x10^3/uL (4.0-11.0) Red Blood Count 4.11 x10^6/uL (3.50-5.40) Hemoglobin 8.8 g/dL (12.0-15.5) Hematocrit 28.7 % (36.0-47.0) Mean Corpuscular Volume 70 fL (79-100) Mean Corpuscular Hemoglobin 22 pg (25-35) Mean Corpuscular Hemoglobin Concent 31 g/dL (31-37) Red Cell Distribution Width 18.7 % (11.5-14.5) Platelet Count 298 x10^3/uL (140-400) Neutrophils (%) (Auto) 60 % (31-73) Lymphocytes (%) (Auto) 25 % (24-48) Monocytes (%) (Auto) 9 % (0-9) Eosinophils (%) (Auto) 5 % (0-3) Basophils (%) (Auto) 1 % (0-3) Neutrophils # (Auto) 4.2 x10^3uL (1.8-7.7) Lymphocytes # (Auto) 1.8 x10^3/uL (1.0-4.8) Monocytes # (Auto) 0.7 x10^3/uL (0.0-1.1) Eosinophils # (Auto) 0.4 x10^3/uL (0.0-0.7) Basophils # (Auto) 0.0 x10^3/uL (0.0-0.2) Sodium Level 138 mmol/L (136-145) Potassium Level 4.0 mmol/L (3.5-5.1) Chloride Level 106 mmol/L (98-107) Carbon Dioxide Level 25 mmol/L (21-32) Anion Gap 7 (6-14) Blood Urea Nitrogen 6 mg/dL (7-20) Creatinine 0.6 mg/dL (0.6-1.0) Estimated GFR (Cockcroft-Gault) 108.1 Glucose Level 83 mg/dL (70-99) Calcium Level 8.1 mg/dL (8.5-10.1) Iron Level 16 ug/dL (50-170) Total Iron Binding Capacity 320 ug/dL (250-450) Iron Saturation 5 % (15-34) Ferritin 8 ng/mL (8-252) Laboratory Tests Test 02/01/17 05:15 White Blood Count 7.0 x10^3/uL (4.0-11.0) Red Blood Count 4.11 x10^6/uL (3.50-5.40) Hemoglobin 8.8 g/dL (12.0-15.5) Hematocrit 28.7 % (36.0-47.0) Mean Corpuscular Volume 70 fL (79-100) Mean Corpuscular Hemoglobin 22 pg (25-35) Mean Corpuscular Hemoglobin Concent 31 g/dL (31-37) Red Cell Distribution Width 18.7 % (11.5-14.5) Platelet Count 298 x10^3/uL (140-400) Neutrophils (%) (Auto) 60 % (31-73) Lymphocytes (%) (Auto) 25 % (24-48) Monocytes (%) (Auto) 9 % (0-9) Eosinophils (%) (Auto) 5 % (0-3) Basophils (%) (Auto) 1 % (0-3) Neutrophils # (Auto) 4.2 x10^3uL (1.8-7.7) Lymphocytes # (Auto) 1.8 x10^3/uL (1.0-4.8) Monocytes # (Auto) 0.7 x10^3/uL (0.0-1.1) Eosinophils # (Auto) 0.4 x10^3/uL (0.0-0.7) Basophils # (Auto) 0.0 x10^3/uL (0.0-0.2) Sodium Level 138 mmol/L (136-145) Potassium Level 4.0 mmol/L (3.5-5.1) Chloride Level 106 mmol/L (98-107) Carbon Dioxide Level 25 mmol/L (21-32) Anion Gap 7 (6-14) Blood Urea Nitrogen 6 mg/dL (7-20) Creatinine 0.6 mg/dL (0.6-1.0) Estimated GFR (Cockcroft-Gault) 108.1 Glucose Level 83 mg/dL (70-99) Calcium Level 8.1 mg/dL (8.5-10.1) Iron Level 16 ug/dL (50-170) Total Iron Binding Capacity 320 ug/dL (250-450) Iron Saturation 5 % (15-34) Ferritin 8 ng/mL (8-252) Medications Current Medications Ceftriaxone Sodium 1 gm/ Sodium Chloride 100 ml @ 200 mls/hr Q24H IV Last administered on 01/31/17 21:53; Start 01/31/17 at 21:00 Azithromycin 500 mg/Sodium Chloride 250 ml @ 250 mls/hr Q24H IV Last administered on 01/31/17 23:12; Start 01/31/17 at 21:00; Stop 02/02/17 at 20:59 Sodium Chloride 1,000 ml @ 1,000 mls/hr 1X ONCE IV Last administered on 20:17; Start 01/30/17 at 20:00; Stop 01/30/17 at 20:59; Status DC Albuterol/ Ipratropium (Duoneb) 3 ml 1X ONCE NEB Last administered on 20:43; Start 01/30/17 at 20:00; Stop 01/30/17 at 20:01; Status DC Ceftriaxone Sodium 50 ml @ 100 mls/hr 1X ONCE IV Last administered on 20:00; Start 01/30/17 at 20:00; Stop 01/30/17 at 20:29; Status DC Azithromycin 250 ml @ 250 mls/hr 1X ONCE IV Last administered on 01/30/17 20 :00; Start 01/30/17 at 20:00; Stop 01/30/17 at 20:59; Status DC Ondansetron HCl (Zofran) 4 mg PRN Q6HRS PRN IV NAUSEA/VOMITING Last administered on 02/01/17 10:28; Start 01/30/17 at 22:15 Morphine Sulfate 2 mg PRN Q4HRS PRN IV PAIN Last administered on 01/31/17 07: 46; Start 01/30/17 at 22:30; Stop 01/31/17 at 10:44; Status DC Sodium Chloride 1,000 ml @ 75 mls/hr [id number] IV Last administered on 03:43; Start 01/30/17 at 22:45 Ondansetron HCl (Zofran) 4 mg PRN Q8HRS PRN IV NAUSEA/VOMITING; Start 01/30/17 at 22:15; Stop 01/31/17 at 22:14; Status UNV Sodium Chloride 1,000 ml @ 125 mls/hr Q8H IV ; Start 01/30/17 at 22:15; Stop 01/30/17 at 23:18; Status DC Acetaminophen (Tylenol) 650 mg PRN Q4HRS PRN PO FEVER Last administered on 01/31 05:11; Start 01/30/17 at 22:15; Stop 01/31/17 at 10:42; Status DC Albuterol/ Ipratropium (Duoneb) 3 ml RTQID NEB Last administered on 02/01/17 07:11; Start 01/31/17 at 08:00; Stop 02/01/17 at 07:59; Status DC Acetaminophen (Tylenol) 650 mg PRN Q6HRS PRN PO FEVER Last administered on 02/01 10:32; Start 01/31/17 at 10:45 Ondansetron HCl (Zofran) 4 mg PRN Q6HRS PRN IV NAUSEA/VOMITING; Start 01/31/17 at 10:45; Status UNV Morphine Sulfate 2 mg PRN Q2HR PRN IV PAIN; Start 01/31/17 at 10:45 Tramadol HCl (Ultram) 50 mg PRN Q6HRS PRN PO PAIN Last administered on 10:13; Start 01/31/17 at 10:45 Hydralazine HCl (Apresoline) 10 mg PRN Q4HRS PRN IVP ELEVATED BP, SEE COMMENTS ; Start 01/31/17 at 10:45 Docusate Sodium (Colace) 100 mg PRN DAILY PRN PO CONSTIPATION; Start 01/31/17 at 10:45 Guaifenesin/ Codeine Phosphate (Robitussin Ac) 5 ml PRN Q6HRS PRN PO COUGH Last administered on 01/31/17 21:53; Start 01/31/17 at 10:45 Albuterol Sulfate (Ventolin Neb Soln) 2.5 mg PRN Q4HRS PRN NEB SHORTNESS OF BREATH; Start 01/31/17 at 10:45 Influenza Virus Vaccine Quadrival (Fluarix Quad 9993-0125 Syringe) 0.5 ml ONCE ONCE VAX IM Last administered on 01/31/17 17:48; Start 01/31/17 at 13:30; Stop 01/31/17 at 13:31; Status DC Enoxaparin Sodium (Lovenox 40mg Syringe) 40 mg Q24H SQ Last administered on 17:44; Start 01/31/17 at 16:00 Budesonide (Pulmicort) 0.5 mg RTBID NEB Last administered on 02/01/17 07:11; Start 01/31/17 at 20:00 Temazepam (Restoril) 7.5 mg PRN QHS PRN PO INSOMNIA Last administered on 00:12; Start 01/31/17 at 23:45 Promethazine HCl (Phenergan) 12.5 mg PRN Q6HRS PRN PO NAUSEA/VOMITING Last administered on 02/01/17 13:48; Start 02/01/17 at 12:45 Iron Sucrose 200 mg/Sodium Chloride 110 ml @ 55 mls/hr DAILY IV Last administered on 02/01/17 14:31; Start 02/01/17 at 13:00; Stop 02/05/17 at 10: 00 Vitals/I & O Vital Sign - Last 24 Hours 01/31/17 01/31/17 01/31/17 01/31/17 15:00 15:19 17:44 19:00 Temp 97.9 97.9 97.9 97.9 Pulse 88 88 Resp 18 18 B/P (MAP) 112/71 (85) 116/78 (91) Pulse Ox 92 97 O2 Delivery Room Air Room Air Nasal Cannula Room Air O2 Flow Rate 2.0 01/31/17 01/31/17 01/31/17 01/31/17 20:00 20:43 20:45 23:00 Temp 98.0 98.0 Pulse 88 Resp 18 B/P (MAP) 126/76 (93) Pulse Ox 91 O2 Delivery Nasal Cannula Room Air Room Air Room Air O2 Flow Rate 2.0 02/01/17 02/01/17 02/01/17 02/01/17 03:00 07:00 07:12 07:12 Temp 98.3 98.1 98.3 98.1 Pulse 96 96 Resp 18 18 B/P (MAP) 118/64 (82) 97/62 (74) Pulse Ox 95 100 95 95 O2 Delivery Room Air Breathing Treatment Room Air Room Air 02/01/17 02/01/17 02/01/17 02/01/17 08:00 10:13 10:35 11:00 Temp 100.2 97.8 100.2 97.8 Pulse 92 Resp 22 16 B/P (MAP) 107/69 (82) Pulse Ox 91 O2 Delivery Room Air Room Air Room Air 02/01/17 11:13 Resp 22 O2 Delivery Room Air SARAH ARAUJO MD Feb 01, 2017 14:43
[2017-02-01 15:00] VITALS: BP 106/77
--- NOTE | 2017-02-01 16:48 | PDOC ---
PULMONARY PROGRESS NOTES Subjective PT FEELS BETTER Vitals Vital Signs Date Time Temp Pulse Resp B/P (MAP) Pulse Ox O2 Delivery O2 Flow Rate FiO2 02/01/17 15:00 98.1 91 18 106/77 (87) 91 Room Air 98.1 01/31/17 20:00 2.0 Lungs: Crackles Cardiovascular: S1, S2, Other Abdomen: Soft Neuro Exam: Alert Extremities: No Edema Skin: Warm Labs Laboratory Tests Test 01/30/17 19:30 01/30/17 19:55 01/30/17 20:48 01/31/17 04:45 White Blood Count 9.0 x10^3/uL (4.0-11.0) 6.3 x10^3/uL (4.0-11.0) Red Blood Count 4.57 x10^6/uL (3.50-5.40) 3.99 x10^6/uL (3.50-5.40) Hemoglobin 10.0 g/dL (12.0-15.5) 8.8 g/dL (12.0-15.5) Hematocrit 32.3 % (36.0-47.0) 28.2 % (36.0-47.0) Mean Corpuscular Volume 71 fL (79-100) 71 fL (79-100) Mean Corpuscular Hemoglobin 22 pg (25-35) 22 pg (25-35) Mean Corpuscular Hemoglobin Concent 31 g/dL (31-37) 31 g/dL (31-37) Red Cell Distribution Width 18.7 % (11.5-14.5) 18.8 % (11.5-14.5) Platelet Count 360 x10^3/uL (140-400) 303 x10^3/uL (140-400) Neutrophils (%) (Auto) 68 % (31-73) 57 % (31-73) Lymphocytes (%) (Auto) 17 % (24-48) 25 % (24-48) Monocytes (%) (Auto) 9 % (0-9) 12 % (0-9) Eosinophils (%) (Auto) 5 % (0-3) 6 % (0-3) Basophils (%) (Auto) 1 % (0-3) 0 % (0-3) Neutrophils # (Auto) 6.1 x10^3uL (1.8-7.7) 3.6 x10^3uL (1.8-7.7) Lymphocytes # (Auto) 1.6 x10^3/uL (1.0-4.8) 1.6 x10^3/uL (1.0-4.8) Monocytes # (Auto) 0.8 x10^3/uL (0.0-1.1) 0.7 x10^3/uL (0.0-1.1) Eosinophils # (Auto) 0.5 x10^3/uL (0.0-0.7) 0.4 x10^3/uL (0.0-0.7) Basophils # (Auto) 0.0 x10^3/uL (0.0-0.2) 0.0 x10^3/uL (0.0-0.2) Platelet Estimate Increased (ADEQUATE) Large Platelets Occ Polychromasia Slight Hypochromasia Slight Ovalocytes Occ Schistocytes Occ Sodium Level 139 mmol/L (136-145) 143 mmol/L (136-145) Potassium Level 3.6 mmol/L (3.5-5.1) 3.7 mmol/L (3.5-5.1) Chloride Level 107 mmol/L (98-107) 112 mmol/L (98-107) Carbon Dioxide Level 25 mmol/L (21-32) 24 mmol/L (21-32) Anion Gap 7 (6-14) 7 (6-14) Blood Urea Nitrogen 9 mg/dL (7-20) 8 mg/dL (7-20) Creatinine 0.7 mg/dL (0.6-1.0) 0.5 mg/dL (0.6-1.0) Estimated GFR (Cockcroft-Gault) 90.5 133.4 BUN/Creatinine Ratio 13 (6-20) Glucose Level 107 mg/dL (70-99) 93 mg/dL (70-99) Lactic Acid Level 1.8 mmol/L (0.4-2.0) Calcium Level 8.0 mg/dL (8.5-10.1) 7.5 mg/dL (8.5-10.1) Total Bilirubin 0.2 mg/dL (0.2-1.0) Aspartate Amino Transf (AST/SGOT) 27 U/L (15-37) Alanine Aminotransferase (ALT/SGPT) 24 U/L (14-59) Alkaline Phosphatase 69 U/L (46-116) Troponin I Quantitative < 0.017 ng/mL (0.000-0.055) [id number]-Type Natriuretic Peptide 21 pg/mL (0-124) Total Protein 7.4 g/dL (6.4-8.2) Albumin 2.7 g/dL (3.4-5.0) Albumin/Globulin Ratio 0.6 (1.0-1.7) Urine Color Yellow Urine Clarity Clear Urine pH 6.5 Urine Specific [place] >=1.030 Urine Protein Negative mg/dL (NEG-TRACE) Urine Glucose (UA) Negative mg/dL (NEG) Urine Ketones (Stick) Negative mg/dL (NEG) Urine Blood Negative (NEG) Urine Nitrite Negative (NEG) Urine Bilirubin Negative (NEG) Urine Urobilinogen Dipstick 0.2 mg/dL (0.2 mg/dL) Urine Leukocyte Esterase Negative (NEG) Urine RBC 0 /HPF (0-2) Urine WBC 1-4 /HPF (0-4) Urine Squamous Epithelial Cells Occ /LPF Urine Amorphous Sediment Present /HPF Urine Bacteria Few /HPF (0-FEW) Urine Hyaline Casts Few /HPF Urine Mucus Mod /LPF Influenza Type A Antigen Negative (NEGATIVE) Influenza Type B Antigen Negative (NEGATIVE) Test 02/01/17 05:15 White Blood Count 7.0 x10^3/uL (4.0-11.0) Red Blood Count 4.11 x10^6/uL (3.50-5.40) Hemoglobin 8.8 g/dL (12.0-15.5) Hematocrit 28.7 % (36.0-47.0) Mean Corpuscular Volume 70 fL (79-100) Mean Corpuscular Hemoglobin 22 pg (25-35) Mean Corpuscular Hemoglobin Concent 31 g/dL (31-37) Red Cell Distribution Width 18.7 % (11.5-14.5) Platelet Count 298 x10^3/uL (140-400) Neutrophils (%) (Auto) 60 % (31-73) Lymphocytes (%) (Auto) 25 % (24-48) Monocytes (%) (Auto) 9 % (0-9) Eosinophils (%) (Auto) 5 % (0-3) Basophils (%) (Auto) 1 % (0-3) Neutrophils # (Auto) 4.2 x10^3uL (1.8-7.7) Lymphocytes # (Auto) 1.8 x10^3/uL (1.0-4.8) Monocytes # (Auto) 0.7 x10^3/uL (0.0-1.1) Eosinophils # (Auto) 0.4 x10^3/uL (0.0-0.7) Basophils # (Auto) 0.0 x10^3/uL (0.0-0.2) Sodium Level 138 mmol/L (136-145) Potassium Level 4.0 mmol/L (3.5-5.1) Chloride Level 106 mmol/L (98-107) Carbon Dioxide Level 25 mmol/L (21-32) Anion Gap 7 (6-14) Blood Urea Nitrogen 6 mg/dL (7-20) Creatinine 0.6 mg/dL (0.6-1.0) Estimated GFR (Cockcroft-Gault) 108.1 Glucose Level 83 mg/dL (70-99) Calcium Level 8.1 mg/dL (8.5-10.1) Iron Level 16 ug/dL (50-170) Total Iron Binding Capacity 320 ug/dL (250-450) Iron Saturation 5 % (15-34) Ferritin 8 ng/mL (8-252) Laboratory Tests Test 02/01/17 05:15 White Blood Count 7.0 x10^3/uL (4.0-11.0) Red Blood Count 4.11 x10^6/uL (3.50-5.40) Hemoglobin 8.8 g/dL (12.0-15.5) Hematocrit 28.7 % (36.0-47.0) Mean Corpuscular Volume 70 fL (79-100) Mean Corpuscular Hemoglobin 22 pg (25-35) Mean Corpuscular Hemoglobin Concent 31 g/dL (31-37) Red Cell Distribution Width 18.7 % (11.5-14.5) Platelet Count 298 x10^3/uL (140-400) Neutrophils (%) (Auto) 60 % (31-73) Lymphocytes (%) (Auto) 25 % (24-48) Monocytes (%) (Auto) 9 % (0-9) Eosinophils (%) (Auto) 5 % (0-3) Basophils (%) (Auto) 1 % (0-3) Neutrophils # (Auto) 4.2 x10^3uL (1.8-7.7) Lymphocytes # (Auto) 1.8 x10^3/uL (1.0-4.8) Monocytes # (Auto) 0.7 x10^3/uL (0.0-1.1) Eosinophils # (Auto) 0.4 x10^3/uL (0.0-0.7) Basophils # (Auto) 0.0 x10^3/uL (0.0-0.2) Sodium Level 138 mmol/L (136-145) Potassium Level 4.0 mmol/L (3.5-5.1) Chloride Level 106 mmol/L (98-107) Carbon Dioxide Level 25 mmol/L (21-32) Anion Gap 7 (6-14) Blood Urea Nitrogen 6 mg/dL (7-20) Creatinine 0.6 mg/dL (0.6-1.0) Estimated GFR (Cockcroft-Gault) 108.1 Glucose Level 83 mg/dL (70-99) Calcium Level 8.1 mg/dL (8.5-10.1) Iron Level 16 ug/dL (50-170) Total Iron Binding Capacity 320 ug/dL (250-450) Iron Saturation 5 % (15-34) Ferritin 8 ng/mL (8-252) Impression . 1. Acute hypoxic respiratory failure secondary to community-acquired basal pneumonia. 2. Suspected underlying chronic obstructive pulmonary disease. Plan . OK TO D/C IN AM ON AUGMENTIN 1. Continue with present antibiotics. 2. Continue oxygen. 3. Bronchodilators. 4. Add Pulmicort. PRATIK ANGUIANO MD Feb 01, 2017 16:48
[2017-02-01] MEDS: BENZONATATE 100 MG CAPSULE. PO SCH ×2 (17:14→21:40)
[2017-02-01] MEDS: ENOXAPARIN 40 MG/0.4 ML SYRINGE. SQ SCH (17:15)
[2017-02-01 19:50] VITALS: BP 100/68
[2017-02-01] MEDS: AZITHROMYCIN 500 MG in IV NORMAL SALINE 250ML 250 ML IV SCH (21:39)
[2017-02-01 23:59] VITALS: BP 106/66
[2017-02-02] MEDS: traMADol 50 MG TABLET PO PRN ×2 (00:32→13:38)
[2017-02-02 03:57] VITALS: BP 102/59
[2017-02-02 05:44] LABS: BASO # 0.1 x10^3/uL (0.0-0.2); BASO % 1 % (0-3); EOS % 6 % (0-3); HEMATOCRIT 28.9 % (36.0-47.0); HEMOGLOBIN 8.9 g/dL (12.0-15.5); LYMPH # 1.4 x10^3/uL (1.0-4.8); LYMPH % 19 % (24-48); MEAN CORPUSCULAR HEMOGLOBIN 22 pg (25-35); MEAN CORPUSCULAR HGB CONC 31 g/dL (31-37); MEAN CORPUSCULAR VOLUME 71 fL (79-100); MONO % 13 % (0-9); NEUT % 62 % (31-73); PLATELET COUNT 304 x10^3/uL (140-400); RED BLOOD COUNT 4.09 x10^6/uL (3.50-5.40); RED CELL DISTRIBUTION WIDTH 18.7 % (11.5-14.5); WHITE BLOOD COUNT 7.5 x10^3/uL (4.0-11.0)
[2017-02-02 06:16] LABS: CALCIUM 7.8 mg/dL (8.5-10.1); CREATININE 0.7 mg/dL (0.6-1.0); GFR 90.5
[2017-02-02 07:00] VITALS: BP 106/58
[2017-02-02] MEDS: BUDESONIDE 0.5 MG/2 ML NEBU. NEB SCH ×2 (07:26→20:00)
[2017-02-02] MEDS: BENZONATATE 100 MG CAPSULE. PO SCH ×3 (07:59→20:47)
--- NOTE | 2017-02-02 08:10 | RAD ---
Portable chest, 02/01/2017: History: Shortness of breath Comparison is made to a study from 01/30/2017. The heart size and pulmonary vascularity are normal. There are mild ongoing bibasilar opacities, left greater than right. These are essentially unchanged. No new pulmonary abnormality is seen. No pleural fluid is evident. IMPRESSION: Unchanged basilar opacities, left greater than right, suggesting pneumonitis and/or atelectasis.
[2017-02-02 11:00] VITALS: BP 103/64
[2017-02-02] MEDS: IRON SUCROSE COMPLEX 200 MG in IV NORMAL SALINE 100ML 100 ML IV SCH (11:31)
[2017-02-02] MEDS: IV NORMAL SALINE 1000ML BAG 1,000 ML IV SCH (11:33)
[2017-02-02] MEDS: ONDANSETRON PF 4 MG/2 ML VIAL. IV PRN (12:45)
[2017-02-02 13:09] LABS: SPECIMEN SOURCE Urine (.)
[2017-02-02] MEDS: POLYETHYLENE GLYCOL 3350 17 GM PACKET. PO PRN (13:37)
[2017-02-02] MEDS: DOCUSATE SODIUM 100 MG CAPSULE. PO PRN (13:38)
[2017-02-02] MEDS: BENZOCAINE/MENTHOL LOZENGE. PO PRN ×2 (13:38→16:52)
[2017-02-02] MEDS: guaiFENesin/CODEINE 100mg/10mg 5 ML LIQUID PO PRN ×2 (13:38→20:47)
[2017-02-02 15:00] VITALS: BP 118/68
--- NOTE | 2017-02-02 15:23 | PDOC ---
PROGRESS NOTES Chief Complaint Chief Complaint acute resp failure with CAP h/o pna and bronchitis previous smoker, possible copd baseline SIRS, no sepsis normacytic anemia, likely chronic, iron deficiency plan: fu with pulm on mona and ceftriaxone cough meds duoneb, albuterol prn check legi and strep urine Ag neg dvt ppx add venofer x5d add more N/V meds flu neg NC as needed dc ivf repeat CXR stable dc tmr hope no home o2 needed History of Present Illness History of Present Illness ROS: no fever, chills, sob or chest pain cont cough, no sputum severe n/, headeache, body ache better 02/02 low iron desat on RA Vitals Vitals Vital Signs Date Time Temp Pulse Resp B/P (MAP) Pulse Ox O2 Delivery O2 Flow Rate FiO2 02/02/17 13:38 20 Room Air 02/02/17 11:00 97.9 86 103/64 (77) 96 2.0 97.9 Physical Exam General: Alert, Oriented X3, Cooperative Heart: Regular rate, Normal S1, Normal S2 Lungs: Crackles Abdomen: Normal bowel sounds, Soft Extremities: No clubbing, No cyanosis Skin: No rashes Labs LABS Laboratory Tests Test 02/02/17 05:25 White Blood Count 7.5 x10^3/uL (4.0-11.0) Red Blood Count 4.09 x10^6/uL (3.50-5.40) Hemoglobin 8.9 g/dL (12.0-15.5) Hematocrit 28.9 % (36.0-47.0) Mean Corpuscular Volume 71 fL (79-100) Mean Corpuscular Hemoglobin 22 pg (25-35) Mean Corpuscular Hemoglobin Concent 31 g/dL (31-37) Red Cell Distribution Width 18.7 % (11.5-14.5) Platelet Count 304 x10^3/uL (140-400) Neutrophils (%) (Auto) 62 % (31-73) Lymphocytes (%) (Auto) 19 % (24-48) Monocytes (%) (Auto) 13 % (0-9) Eosinophils (%) (Auto) 6 % (0-3) Basophils (%) (Auto) 1 % (0-3) Neutrophils # (Auto) 4.6 x10^3uL (1.8-7.7) Lymphocytes # (Auto) 1.4 x10^3/uL (1.0-4.8) Monocytes # (Auto) 0.9 x10^3/uL (0.0-1.1) Eosinophils # (Auto) 0.5 x10^3/uL (0.0-0.7) Basophils # (Auto) 0.1 x10^3/uL (0.0-0.2) Sodium Level 137 mmol/L (136-145) Potassium Level 4.0 mmol/L (3.5-5.1) Chloride Level 106 mmol/L (98-107) Carbon Dioxide Level 23 mmol/L (21-32) Anion Gap 8 (6-14) Blood Urea Nitrogen 6 mg/dL (7-20) Creatinine 0.7 mg/dL (0.6-1.0) Estimated GFR (Cockcroft-Gault) 90.5 Glucose Level 83 mg/dL (70-99) Calcium Level 7.8 mg/dL (8.5-10.1) Assessment and Plan Assessmemt and Plan Problems Medical Problems: (1) Respiratory failure with hypoxia Status: Acute Problems: Comment Review of Relevant I have reviewed the following items caroline (where applicable) has been applied. Labs Laboratory Tests Test 02/01/17 05:15 02/01/17 10:30 02/02/17 05:25 White Blood Count 7.0 x10^3/uL (4.0-11.0) 7.5 x10^3/uL (4.0-11.0) Red Blood Count 4.11 x10^6/uL (3.50-5.40) 4.09 x10^6/uL (3.50-5.40) Hemoglobin 8.8 g/dL (12.0-15.5) 8.9 g/dL (12.0-15.5) Hematocrit 28.7 % (36.0-47.0) 28.9 % (36.0-47.0) Mean Corpuscular Volume 70 fL (79-100) 71 fL (79-100) Mean Corpuscular Hemoglobin 22 pg (25-35) 22 pg (25-35) Mean Corpuscular Hemoglobin Concent 31 g/dL (31-37) 31 g/dL (31-37) Red Cell Distribution Width 18.7 % (11.5-14.5) 18.7 % (11.5-14.5) Platelet Count 298 x10^3/uL (140-400) 304 x10^3/uL (140-400) Neutrophils (%) (Auto) 60 % (31-73) 62 % (31-73) Lymphocytes (%) (Auto) 25 % (24-48) 19 % (24-48) Monocytes (%) (Auto) 9 % (0-9) 13 % (0-9) Eosinophils (%) (Auto) 5 % (0-3) 6 % (0-3) Basophils (%) (Auto) 1 % (0-3) 1 % (0-3) Neutrophils # (Auto) 4.2 x10^3uL (1.8-7.7) 4.6 x10^3uL (1.8-7.7) Lymphocytes # (Auto) 1.8 x10^3/uL (1.0-4.8) 1.4 x10^3/uL (1.0-4.8) Monocytes # (Auto) 0.7 x10^3/uL (0.0-1.1) 0.9 x10^3/uL (0.0-1.1) Eosinophils # (Auto) 0.4 x10^3/uL (0.0-0.7) 0.5 x10^3/uL (0.0-0.7) Basophils # (Auto) 0.0 x10^3/uL (0.0-0.2) 0.1 x10^3/uL (0.0-0.2) Sodium Level 138 mmol/L (136-145) 137 mmol/L (136-145) Potassium Level 4.0 mmol/L (3.5-5.1) 4.0 mmol/L (3.5-5.1) Chloride Level 106 mmol/L (98-107) 106 mmol/L (98-107) Carbon Dioxide Level 25 mmol/L (21-32) 23 mmol/L (21-32) Anion Gap 7 (6-14) 8 (6-14) Blood Urea Nitrogen 6 mg/dL (7-20) 6 mg/dL (7-20) Creatinine 0.6 mg/dL (0.6-1.0) 0.7 mg/dL (0.6-1.0) Estimated GFR (Cockcroft-Gault) 108.1 90.5 Glucose Level 83 mg/dL (70-99) 83 mg/dL (70-99) Calcium Level 8.1 mg/dL (8.5-10.1) 7.8 mg/dL (8.5-10.1) Ferritin 8 ng/mL (8-252) Body Fluid Culture (LAB) (.) Urine Legionella Antigen Negative (Negative) Streptococcus pneumoniae Antigen Negative (Negative) Organism Identification (LAB) (.) EPHRAIM Specimen Source Urine (.) Laboratory Tests Test 02/02/17 05:25 White Blood Count 7.5 x10^3/uL (4.0-11.0) Red Blood Count 4.09 x10^6/uL (3.50-5.40) Hemoglobin 8.9 g/dL (12.0-15.5) Hematocrit 28.9 % (36.0-47.0) Mean Corpuscular Volume 71 fL (79-100) Mean Corpuscular Hemoglobin 22 pg (25-35) Mean Corpuscular Hemoglobin Concent 31 g/dL (31-37) Red Cell Distribution Width 18.7 % (11.5-14.5) Platelet Count 304 x10^3/uL (140-400) Neutrophils (%) (Auto) 62 % (31-73) Lymphocytes (%) (Auto) 19 % (24-48) Monocytes (%) (Auto) 13 % (0-9) Eosinophils (%) (Auto) 6 % (0-3) Basophils (%) (Auto) 1 % (0-3) Neutrophils # (Auto) 4.6 x10^3uL (1.8-7.7) Lymphocytes # (Auto) 1.4 x10^3/uL (1.0-4.8) Monocytes # (Auto) 0.9 x10^3/uL (0.0-1.1) Eosinophils # (Auto) 0.5 x10^3/uL (0.0-0.7) Basophils # (Auto) 0.1 x10^3/uL (0.0-0.2) Sodium Level 137 mmol/L (136-145) Potassium Level 4.0 mmol/L (3.5-5.1) Chloride Level 106 mmol/L (98-107) Carbon Dioxide Level 23 mmol/L (21-32) Anion Gap 8 (6-14) Blood Urea Nitrogen 6 mg/dL (7-20) Creatinine 0.7 mg/dL (0.6-1.0) Estimated GFR (Cockcroft-Gault) 90.5 Glucose Level 83 mg/dL (70-99) Calcium Level 7.8 mg/dL (8.5-10.1) Medications Current Medications Ceftriaxone Sodium 1 gm/ Sodium Chloride 100 ml @ 200 mls/hr Q24H IV Last administered on 02/01/17 21:39; Start 01/31/17 at 21:00 Azithromycin 500 mg/Sodium Chloride 250 ml @ 250 mls/hr Q24H IV Last administered on 02/01/17 21:39; Start 01/31/17 at 21:00; Stop 02/02/17 at 20:59 Sodium Chloride 1,000 ml @ 1,000 mls/hr 1X ONCE IV Last administered on 20:17; Start 01/30/17 at 20:00; Stop 01/30/17 at 20:59; Status DC Albuterol/ Ipratropium (Duoneb) 3 ml 1X ONCE NEB Last administered on 20:43; Start 01/30/17 at 20:00; Stop 01/30/17 at 20:01; Status DC Ceftriaxone Sodium 50 ml @ 100 mls/hr 1X ONCE IV Last administered on 20:00; Start 01/30/17 at 20:00; Stop 01/30/17 at 20:29; Status DC Azithromycin 250 ml @ 250 mls/hr 1X ONCE IV Last administered on 01/30/17 20 :00; Start 01/30/17 at 20:00; Stop 01/30/17 at 20:59; Status DC Ondansetron HCl (Zofran) 4 mg PRN Q6HRS PRN IV NAUSEA/VOMITING Last administered on 02/02/17 12:45; Start 01/30/17 at 22:15 Morphine Sulfate 2 mg PRN Q4HRS PRN IV PAIN Last administered on 01/31/17 07: 46; Start 01/30/17 at 22:30; Stop 01/31/17 at 10:44; Status DC Sodium Chloride 1,000 ml @ 75 mls/hr [id number] IV Last administered on 11:33; Start 01/30/17 at 22:45 Ondansetron HCl (Zofran) 4 mg PRN Q8HRS PRN IV NAUSEA/VOMITING; Start 01/30/17 at 22:15; Stop 01/31/17 at 22:14; Status UNV Sodium Chloride 1,000 ml @ 125 mls/hr Q8H IV ; Start 01/30/17 at 22:15; Stop 01/30/17 at 23:18; Status DC Acetaminophen (Tylenol) 650 mg PRN Q4HRS PRN PO FEVER Last administered on 01/31 05:11; Start 01/30/17 at 22:15; Stop 01/31/17 at 10:42; Status DC Albuterol/ Ipratropium (Duoneb) 3 ml RTQID NEB Last administered on 02/01/17 07:11; Start 01/31/17 at 08:00; Stop 02/01/17 at 07:59; Status DC Acetaminophen (Tylenol) 650 mg PRN Q6HRS PRN PO FEVER Last administered on 02/01 17:14; Start 01/31/17 at 10:45 Ondansetron HCl (Zofran) 4 mg PRN Q6HRS PRN IV NAUSEA/VOMITING; Start 01/31/17 at 10:45; Status UNV Morphine Sulfate 2 mg PRN Q2HR PRN IV PAIN; Start 01/31/17 at 10:45 Tramadol HCl (Ultram) 50 mg PRN Q6HRS PRN PO PAIN Last administered on 13:38; Start 01/31/17 at 10:45 Hydralazine HCl (Apresoline) 10 mg PRN Q4HRS PRN IVP ELEVATED BP, SEE COMMENTS ; Start 01/31/17 at 10:45 Docusate Sodium (Colace) 100 mg PRN DAILY PRN PO CONSTIPATION Last administered on 02/02/17 13:38; Start 01/31/17 at 10:45 Guaifenesin/ Codeine Phosphate (Robitussin Ac) 5 ml PRN Q6HRS PRN PO COUGH Last administered on 02/02/17 13:38; Start 01/31/17 at 10:45 Albuterol Sulfate (Ventolin Neb Soln) 2.5 mg PRN Q4HRS PRN NEB SHORTNESS OF BREATH; Start 01/31/17 at 10:45 Influenza Virus Vaccine Quadrival (Fluarix Quad [id number] Syringe) 0.5 ml ONCE ONCE VAX IM Last administered on 01/31/17 17:48; Start 01/31/17 at 13:30; Stop 01/31/17 at 13:31; Status DC Enoxaparin Sodium (Lovenox 40mg Syringe) 40 mg Q24H SQ Last administered on 17:15; Start 01/31/17 at 16:00 Budesonide (Pulmicort) 0.5 mg RTBID NEB Last administered on 02/02/17 07:26; Start 01/31/17 at 20:00 Temazepam (Restoril) 7.5 mg PRN QHS PRN PO INSOMNIA Last administered on 00:12; Start 01/31/17 at 23:45 Promethazine HCl (Phenergan) 12.5 mg PRN Q6HRS PRN PO NAUSEA/VOMITING Last administered on 02/01/17 13:48; Start 02/01/17 at 12:45 Iron Sucrose 200 mg/Sodium Chloride 110 ml @ 55 mls/hr DAILY IV Last administered on 02/02/17 11:31; Start 02/01/17 at 13:00; Stop 02/05/17 at 10: 00 Benzonatate (Tessalon Perle) 100 mg [id number] PO Last administered on 02/02/17 07 :59; Start 02/01/17 at 15:00 Throat Lozenges (Cepacol Sore Throat Lozenge) 1 nelly PRN Q2HRS PRN PO SORE THROAT Last administered on 02/02/17 13:38; Start 02/02/17 at 12:00 Polyethylene Glycol (miraLAX PACKET) 17 gm PRN DAILY PRN PO CONSTIPATION Last administered on 02/02/17 13:37; Start 02/02/17 at 12:15 Vitals/I & O Vital Sign - Last 24 Hours 02/01/17 02/01/17 02/01/177/17 17:14 18:14 19:50 20:00 Temp 98.1 98.1 Pulse 81 Resp 20 22 18 B/P (MAP) 100/68 (79) Pulse Ox 91 O2 Delivery Room Air Room Air Room Air Room Air 02/01/17 02/01/17 02/02/17 02/02/17 20:07 23:59 00:32 03:57 Temp 98.7 98.3 98.7 98.3 Pulse 73 88 Resp 18 18 B/P (MAP) 106/66 (79) 102/59 (73) Pulse Ox 96 92 92 O2 Delivery Room Air Room Air Room Air Room Air 02/02/17 02/02/17 02/02/17 02/02/17 07:00 07:27 08:00 10:15 Temp 98.1 98.1 Pulse 89 Resp 18 B/P (MAP) 106/58 (74) Pulse Ox 91 O2 Delivery Room Air Room Air Nasal Cannula Nasal Cannula O2 Flow Rate 2.0 2.0 02/02/17 02/02/17 11:00 13:38 Temp 97.9 97.9 Pulse 86 Resp 18 20 B/P (MAP) 103/64 (77) Pulse Ox 96 O2 Delivery Nasal Cannula Room Air O2 Flow Rate 2.0 SARAH ARAUJO MD Feb 02, 2017 15:23
[2017-02-02] MEDS: PROMETHAZINE 12.5 MG TABLET. PO PRN (16:52)
[2017-02-02] MEDS: ENOXAPARIN 40 MG/0.4 ML SYRINGE. SQ SCH (16:52)
[2017-02-02 19:00] VITALS: BP 111/68
[2017-02-02] MEDS: BISACODYL 5 MG TABLET.DR. PO PRN (20:47)
[2017-02-02 23:00] VITALS: BP 99/44
[2017-02-03 03:00] VITALS: BP 91/54
[2017-02-03 07:00] VITALS: BP 98/68
[2017-02-03] MEDS: BUDESONIDE 0.5 MG/2 ML NEBU. NEB SCH ×2 (07:42→20:05)
[2017-02-03 09:13] LABS: FOLATE 9.87 ng/ml (3.2-20.0)
[2017-02-03] MEDS: IRON SUCROSE COMPLEX 200 MG in IV NORMAL SALINE 100ML 100 ML IV SCH (09:26)
[2017-02-03] MEDS: BENZONATATE 100 MG CAPSULE. PO SCH ×3 (09:26→23:00)
[2017-02-03] MEDS: POLYETHYLENE GLYCOL 3350 17 GM PACKET. PO PRN (09:29)
[2017-02-03] MEDS: DOCUSATE SODIUM 100 MG CAPSULE. PO PRN (09:29)
[2017-02-03] MEDS: BISACODYL 5 MG TABLET.DR. PO PRN (09:29)
[2017-02-03 11:00] VITALS: BP 98/58
[2017-02-03 14:19] LABS: NEG OBC FOB NEG; POS OBC FOB POS
[2017-02-03 15:00] VITALS: BP 104/67
[2017-02-03] MEDS ORDERED: BISACODYL 10 MG SUPP.RECT. PR PRN (15:30)
[2017-02-03] MEDS: ENOXAPARIN 40 MG/0.4 ML SYRINGE. SQ SCH (15:51)
--- NOTE | 2017-02-03 16:04 | PDOC ---
PROGRESS NOTES Chief Complaint Chief Complaint acute resp failure with CAP h/o pna and bronchitis previous smoker, SIRS, no sepsis normacytic anemia, likely chronic, iron deficiency on mona and ceftriaxone cough meds duoneb, albuterol prn check legi and strep urine Ag neg dvt ppx add venofer x5d add more N/V meds flu neg NC as needed still weakness, cough, hypoxia with exertion History of Present Illness History of Present Illness ROS: no fever, chills, sob or chest pain cont cough, no sputum sore throat , headeache, body ache better 02/02 low iron Vitals Vitals Vital Signs Date Time Temp Pulse Resp B/P (MAP) Pulse Ox O2 Delivery O2 Flow Rate FiO2 02/03/17 11:00 97.5 90 20 98/58 (71) 96 Room Air 97.5 02/03/17 07:40 2.0 Physical Exam General: Alert, Oriented X3, Cooperative Heart: Regular rate, Normal S1, Normal S2 Lungs: Crackles Abdomen: Normal bowel sounds, Soft Extremities: No clubbing, No cyanosis Skin: No rashes Labs LABS Laboratory Tests Test 02/03/17 13:40 Stool Occult Blood Negative (NEG) Assessment and Plan Assessmemt and Plan Problems Medical Problems: (1) Respiratory failure with hypoxia Status: Acute Problems: Comment Review of Relevant I have reviewed the following items caroline (where applicable) has been applied. Labs Laboratory Tests Test 02/02/17 05:25 02/03/17 13:40 White Blood Count 7.5 x10^3/uL (4.0-11.0) Red Blood Count 4.09 x10^6/uL (3.50-5.40) Hemoglobin 8.9 g/dL (12.0-15.5) Hematocrit 28.9 % (36.0-47.0) Mean Corpuscular Volume 71 fL (79-100) Mean Corpuscular Hemoglobin 22 pg (25-35) Mean Corpuscular Hemoglobin Concent 31 g/dL (31-37) Red Cell Distribution Width 18.7 % (11.5-14.5) Platelet Count 304 x10^3/uL (140-400) Neutrophils (%) (Auto) 62 % (31-73) Lymphocytes (%) (Auto) 19 % (24-48) Monocytes (%) (Auto) 13 % (0-9) Eosinophils (%) (Auto) 6 % (0-3) Basophils (%) (Auto) 1 % (0-3) Neutrophils # (Auto) 4.6 x10^3uL (1.8-7.7) Lymphocytes # (Auto) 1.4 x10^3/uL (1.0-4.8) Monocytes # (Auto) 0.9 x10^3/uL (0.0-1.1) Eosinophils # (Auto) 0.5 x10^3/uL (0.0-0.7) Basophils # (Auto) 0.1 x10^3/uL (0.0-0.2) Sodium Level 137 mmol/L (136-145) Potassium Level 4.0 mmol/L (3.5-5.1) Chloride Level 106 mmol/L (98-107) Carbon Dioxide Level 23 mmol/L (21-32) Anion Gap 8 (6-14) Blood Urea Nitrogen 6 mg/dL (7-20) Creatinine 0.7 mg/dL (0.6-1.0) Estimated GFR (Cockcroft-Gault) 90.5 Glucose Level 83 mg/dL (70-99) Calcium Level 7.8 mg/dL (8.5-10.1) Stool Occult Blood Negative (NEG) Laboratory Tests Test 02/03/17 13:40 Stool Occult Blood Negative (NEG) Medications Current Medications Ceftriaxone Sodium 1 gm/ Sodium Chloride 100 ml @ 200 mls/hr Q24H IV Last administered on 02/02/17 20:47; Start 01/31/17 at 21:00 Azithromycin 500 mg/Sodium Chloride 250 ml @ 250 mls/hr Q24H IV Last administered on 02/01/17 21:39; Start 01/31/17 at 21:00; Stop 02/02/17 at 20:59 ; Status DC Sodium Chloride 1,000 ml @ 1,000 mls/hr 1X ONCE IV Last administered on 20:17; Start 01/30/17 at 20:00; Stop 01/30/17 at 20:59; Status DC Albuterol/ Ipratropium (Duoneb) 3 ml 1X ONCE NEB Last administered on 20:43; Start 01/30/17 at 20:00; Stop 01/30/17 at 20:01; Status DC Ceftriaxone Sodium 50 ml @ 100 mls/hr 1X ONCE IV Last administered on 20:00; Start 01/30/17 at 20:00; Stop 01/30/17 at 20:29; Status DC Azithromycin 250 ml @ 250 mls/hr 1X ONCE IV Last administered on 01/30/17 20 :00; Start 01/30/17 at 20:00; Stop 01/30/17 at 20:59; Status DC Ondansetron HCl (Zofran) 4 mg PRN Q6HRS PRN IV NAUSEA/VOMITING Last administered on 02/02/17 12:45; Start 01/30/17 at 22:15 Morphine Sulfate 2 mg PRN Q4HRS PRN IV PAIN Last administered on 01/31/17 07: 46; Start 01/30/17 at 22:30; Stop 01/31/17 at 10:44; Status DC Sodium Chloride 1,000 ml @ 75 mls/hr [id number] IV Last administered on 11:33; Start 01/30/17 at 22:45; Stop 02/02/17 at 15:22; Status DC Ondansetron HCl (Zofran) 4 mg PRN Q8HRS PRN IV NAUSEA/VOMITING; Start 01/30/17 at 22:15; Stop 01/31/17 at 22:14; Status UNV Sodium Chloride 1,000 ml @ 125 mls/hr Q8H IV ; Start 01/30/17 at 22:15; Stop 01/30/17 at 23:18; Status DC Acetaminophen (Tylenol) 650 mg PRN Q4HRS PRN PO FEVER Last administered on 01/31 05:11; Start 01/30/17 at 22:15; Stop 01/31/17 at 10:42; Status DC Albuterol/ Ipratropium (Duoneb) 3 ml RTQID NEB Last administered on 02/01/17 07:11; Start 01/31/17 at 08:00; Stop 02/01/17 at 07:59; Status DC Acetaminophen (Tylenol) 650 mg PRN Q6HRS PRN PO FEVER Last administered on 02/01 17:14; Start 01/31/17 at 10:45 Ondansetron HCl (Zofran) 4 mg PRN Q6HRS PRN IV NAUSEA/VOMITING; Start 01/31/17 at 10:45; Status UNV Morphine Sulfate 2 mg PRN Q2HR PRN IV PAIN; Start 01/31/17 at 10:45 Tramadol HCl (Ultram) 50 mg PRN Q6HRS PRN PO PAIN Last administered on 13:38; Start 01/31/17 at 10:45 Hydralazine HCl (Apresoline) 10 mg PRN Q4HRS PRN IVP ELEVATED BP, SEE COMMENTS ; Start 01/31/17 at 10:45 Docusate Sodium (Colace) 100 mg PRN DAILY PRN PO CONSTIPATION Last administered on 02/03/17 09:29; Start 01/31/17 at 10:45 Guaifenesin/ Codeine Phosphate (Robitussin Ac) 5 ml PRN Q6HRS PRN PO COUGH Last administered on 02/02/17 20:47; Start 01/31/17 at 10:45 Albuterol Sulfate (Ventolin Neb Soln) 2.5 mg PRN Q4HRS PRN NEB SHORTNESS OF BREATH Last administered on 02/02/17 20:00; Start 01/31/17 at 10:45 Influenza Virus Vaccine Quadrival (Fluarix Quad [id number] Syringe) 0.5 ml ONCE ONCE VAX IM Last administered on 01/31/17 17:48; Start 01/31/17 at 13:30; Stop 01/31/17 at 13:31; Status DC Enoxaparin Sodium (Lovenox 40mg Syringe) 40 mg Q24H SQ Last administered on 15:51; Start 01/31/17 at 16:00 Budesonide (Pulmicort) 0.5 mg RTBID NEB Last administered on 02/03/17 07:42; Start 01/31/17 at 20:00 Temazepam (Restoril) 7.5 mg PRN QHS PRN PO INSOMNIA Last administered on 00:12; Start 01/31/17 at 23:45 Promethazine HCl (Phenergan) 12.5 mg PRN Q6HRS PRN PO NAUSEA/VOMITING Last administered on 02/02/17 16:52; Start 02/01/17 at 12:45 Iron Sucrose 200 mg/Sodium Chloride 110 ml @ 55 mls/hr DAILY IV Last administered on 02/03/17 09:26; Start 02/01/17 at 13:00; Stop 02/05/17 at 10: 00 Benzonatate (Tessalon Perle) 100 mg [id number] PO Last administered on 02/03/17 14 :58; Start 02/01/17 at 15:00 Throat Lozenges (Cepacol Sore Throat Lozenge) 1 nelly PRN Q2HRS PRN PO SORE THROAT Last administered on 02/02/17 16:52; Start 02/02/17 at 12:00 Polyethylene Glycol (miraLAX PACKET) 17 gm PRN DAILY PRN PO CONSTIPATION Last administered on 02/03/17 09:29; Start 02/02/17 at 12:15 Bisacodyl (Dulcolax Tab) 10 mg PRN DAILY PRN PO CONSTIPATION Last administered on 02/03/17 09:29; Start 02/02/17 at 20:30 Bisacodyl (Dulcolax Supp) 10 mg PRN DAILY PRN [place] CONSTIPATION Last administered on 02/03/17 15:52; Start 02/03/17 at 15:30 Vitals/I & O Vital Sign - Last 24 Hours 02/02/17 02/02/17 02/02/17 02/03/17 19:00 20:01 23:00 03:00 Temp 96.6 98.4 98.2 96.6 98.4 98.2 Pulse 102 90 86 Resp 18 22 20 B/P (MAP) 111/68 (82) 99/44 (62) 91/54 (66) Pulse Ox 87 97 93 93 O2 Delivery Room Air Room Air Room Air Room Air 02/03/17 02/03/17 02/03/17 02/03/17 07:00 07:40 07:44 11:00 Temp 97.9 97.5 97.9 97.5 Pulse 102 90 Resp 20 20 B/P (MAP) 98/68 (78) 98/58 (71) Pulse Ox 92 93 96 O2 Delivery Room Air Nasal Cannula Room Air Room Air O2 Flow Rate 2.0 ZORAIDA SARABIA MD Feb 03, 2017 16:04
[2017-02-03] MEDS: ONDANSETRON PF 4 MG/2 ML VIAL. IV PRN (16:06)
[2017-02-03 19:00] VITALS: BP 104/66
[2017-02-03 23:00] VITALS: BP 116/75
[2017-02-03] MEDS: BENZOCAINE/MENTHOL LOZENGE. PO PRN (23:02)
[2017-02-03] MEDS: CEPHALEXIN 250 MG CAPSULE. PO SCH (23:46)
[2017-02-04] MEDS: PROMETHAZINE 12.5 MG TABLET. PO PRN (00:10)
[2017-02-04] MEDS: ACETAMINOPHEN 325 MG TABLET. PO PRN (00:31)
[2017-02-04 03:00] VITALS: BP 88/60
[2017-02-04 07:00] VITALS: BP 98/56
[2017-02-04] MEDS: BUDESONIDE 0.5 MG/2 ML NEBU. NEB SCH (07:10)
[2017-02-04] MEDS ORDERED: FERROUS SULFATE 325 MG TABLET. PO SCH (08:00)
[2017-02-04] MEDS: BENZONATATE 100 MG CAPSULE. PO SCH (08:42)
[2017-02-04] MEDS: CEPHALEXIN 250 MG CAPSULE. PO SCH (08:42)
[2017-02-04] MEDS ORDERED: CEPHALEXIN 250 MG CAPSULE. PO SCH (09:00)
[2017-02-04] MEDS ORDERED: guaiFENesin/CODEINE 100mg/10mg PO (10:04)
[2017-02-04] MEDS ORDERED: FERR325T72 PO (10:04)
[2017-02-04] MEDS ORDERED: AMOX1TAB61 PO (10:04)
--- NOTE | 2017-02-04 10:08 | PDOC3 ---
Discharge Summary Visit Information Date of Admission: Jan 31, 2017 Date of Discharge: Feb 04, 2017 Admitting Diagnosis: hypoxia Final Diagnosis acute resp failure with CAP h/o pna and bronchitis previous smoker, SIRS, no sepsis normacytic anemia, likely chronic, iron deficiency on mona and ceftriaxone cough meds duoneb, albuterol prn check legi and strep urine Ag neg dvt ppx add venofer x5d add more N/V meds flu neg NC as needed still weakness, cough, hypoxia with exertion Problems Medical Problems: (1) Respiratory failure with hypoxia Status: Acute Brief Hospital Course Allergies Allergies Coded Allergies Type Severity Reaction Last Updated Verified No Known Drug Allergies 01/30/17 No Vital Signs Vital Signs Date Time Temp Pulse Resp B/P (MAP) Pulse Ox O2 Delivery O2 Flow Rate FiO2 02/04/17 07:35 Room Air 02/04/17 07:00 98.2 85 18 98/56 (70) 96 98.2 02/03/17 20:06 2.0 Lab Results Laboratory Tests Test 02/03/17 13:40 Stool Occult Blood Negative (NEG) Laboratory Tests Test 02/03/17 13:40 Stool Occult Blood Negative (NEG) Brief Hospital Course Ms. Manrique is a 46 old admit for cough with sputum, hypoxia, distress CXR showed bibasilar PNA or pneumonitis, exam improved rocephin, breathing txs, DC home on augmentin, start albuterol anemia, heavy menses known, iron deficient, here, venofer given Discharge Information Condition at Discharge: Improved Follow Up: Weeks Disposition/Orders: D/C to Home Scheduled Amoxicillin/Potassium Clav (Augmentin 875-125 Tablet), 1 TAB PO BID Ferrous Sulfate (Feosol), 325 MG PO DAILY Scheduled PRN [guaiFENesin/CODEINE 100mg/10mg], 5 ML PO PRN Q6HRS PRN for COUGH Patient Instructions Patient Instructions > 30min Duchenne or irais for f/u discussed ZORAIDA SARABIA MD Feb 04, 2017 10:08
[2017-02-04] MEDS ORDERED: PROAIR HFA8.5 GM INH (10:11)
== END 2017-02-04 12:20 | disposition home or self-care (01) | DRG 177 ==
LOC: ER 19:14 → 4 NORTH 19:54
PROVIDERS: ADMIT Internal Medicine; ATTEND Internal Medicine
DX: J15.6 Pneumonia due to other Gram-negative bacteria (principal); J96.01 Acute respiratory failure with hypoxia; R65.10 Systemic inflammatory response syndrome (SIRS) of non-infectious origin without acute organ dysfunction; D50.9 Iron deficiency anemia, unspecified; Z82.49 Family history of ischemic heart disease and other diseases of the circulatory system; Z87.442 Personal history of urinary calculi; Z87.891 Personal history of nicotine dependence; G43.909 Migraine, unspecified, not intractable, without status migrainosus; Z90.49 Acquired absence of other specified parts of digestive tract; Z98.51 Tubal ligation status
CPT/HCPCS: 36415; 71010; 80048; 80053; 81001; 82274; 82607; 82728; 82746; 83605; 83880; 84484; 85025; 87449; 87804; 90686; 93005; 94250; 94640; 94760; J0456; J0690; J0696; J1650; J1756; J2270; J2405; J7030; J7050; J7613; J7620; J7626; Q0169; 99285-25